=== PATIENT | female | born 1990 | race African-American/Black ===

== ENCOUNTER 2019-09-19 10:45 | Emergency (ER) | payer MEDICARE, MEDICAID ==
[~2019-09-19] VITALS: Ht 165.1 cm; Wt 55.0 kg
[2019-09-19 10:51] VITALS: BP 103/74
== END 2019-09-19 11:20 | disposition left against medical advice (07) ==
LOC: ER 10:45
DX: Z53.21 Procedure and treatment not carried out due to patient leaving prior to being seen by health care provider (principal)

== ENCOUNTER 2019-09-19 11:48 | Emergency (ER) | payer MEDICARE, MEDICAID ==
[~2019-09-19] VITALS: Ht 167.6 cm; Wt 55.0 kg
[2019-09-19 13:04] LABS: BASOPHILS % 1.2 % (0.0-2.0); EOSINOPHILS % 4.8 % (0.0-5.0); HEMATOCRIT. 39.7 % (36.0-48.0); HEMOGLOBIN. 13.5 g/dL (12.0-16.0); LYMPHOCYTES % 43.6 % (20.0-50.0); MEAN CORPUSCULAR HEMOGLOBIN 29.4 pg (28.0-32.0); MEAN CORPUSCULAR VOLUME 86.1 fL (81.0-99.0); MEAN PLATELET VOLUME 7.6 fl (7.4-10.4); MONOCYTES % 10.3 % (2.0-8.0); NEUTROPHILS % 40.1 % (40.0-76.0); PLATELET 276 x1000/uL (130-400); RED BLOOD CELL COUNT 4.61 mill/uL (4.2-5.4); RED CELL DISTRIBUTION WIDTH 13.3 % (11.6-14.6)
[2019-09-19 13:06] LABS: CLARITY URINE CLEAR (CLEAR); COLOR URINE YELLOW (YELLOW); KETONES URINE TRACE (NEGATIVE); LEUKOCYTE ESTERASE URINE 3+ (NEGATIVE); NITRITE URINE NEGATIVE (NEGATIVE); OCCULT BLOOD URINE NEGATIVE (NEGATIVE); PH URINE 5.5 (4.5-8.0); PROTEIN URINE TRACE (NEGATIVE); SPECIFIC GRAVITY URINE 1.026 (1.005-1.030)
[2019-09-19 13:10] LABS: CHLORIDE 109 mEq/L (98-107)
[2019-09-19 13:14] LABS: ETHANOL BLOOD < 10 mg/dL
[2019-09-19 13:18] LABS: *BARBITURATES SCREEN URINE NEGATIVE (NEGATIVE); *BENZODIAZEPINES SCREEN URINE NEGATIVE (NEGATIVE)
[2019-09-19 13:19] LABS: METHADONE URINE SCREEN NEGATIVE (NEGATIVE); OPIATES URINE SCREEN NEGATIVE (NEGATIVE); PHENCYCLIDINE URINE SCREEN NEGATIVE (NEGATIVE)
[2019-09-19 13:34] LABS: *AMPHETAMINES SCREEN URINE PRESUMTIVE POSITIVE (NEGATIVE); *COCAINE SCREEN URINE PRESUMTIVE POSITIVE (NEGATIVE); CANNABINOID URINE SCREEN PRESUMTIVE POSITIVE (NEGATIVE)
[2019-09-19 14:05] LABS: HCG SCREEN NEGATIVE
[2019-09-19] MEDS ORDERED: METRONIDAZOLE 500MG TABLET PO ONE (14:15)
[2019-09-19] MEDS ORDERED: LORAZEPAM 1MG TABLET PO ONE (14:45)
[2019-09-19] MEDS: NITROFURANTOIN 100MG M/M CAPSULE PO SCH (14:49)
[2019-09-19] MEDS ORDERED: HALOPERIDOL LACTATE 5MG/ML VIAL IM ONE (16:45)
[2019-09-19] MEDS ORDERED: LORAZEPAM 2MG/ML CPJ IM PRN (16:45)
[2019-09-19] MEDS ORDERED: HALOPERIDOL 5MG TABLET PO ONE (16:45)
[2019-09-19] MEDS ORDERED: DIPHENHYDRAMINE 50MG/ML VIAL IM PRN (16:45)
[2019-09-19] MEDS: LORAZEPAM 1MG TABLET PO ONE ×2 (16:47→16:48)
[2019-09-20] MEDS: NITROFURANTOIN 100MG M/M CAPSULE PO SCH ×2 (02:39→18:00)
[2019-09-20 21:13] VITALS: BP 131/62
== END 2019-09-20 22:01 ==
LOC: ER 12:07
DX: R44.0 Auditory hallucinations (principal); R00.0 Tachycardia, unspecified; Z98.890 Other specified postprocedural states
CPT/HCPCS: 36415; 80053; 80305; 80307; 80320; 80329; 81003; 84703; 85025; 87077; 87086; 96372; 99285; J1200; J1630; J2060; G0480